=== PATIENT | female | born 1995 | race Hispanic/Latino ===

== ENCOUNTER 2018-09-25 16:08 | Emergency (ER) | payer OTHER, SELFPAY ==
--- NOTE | 2018-09-25 18:20 | RAD REPORT ---
EXAM DESCRIPTION: US - Pelvis Complete - 09/25/2018 5:33 pm CLINICAL HISTORY: discharge, R/O TOA Pelvic pain. COMPARISON: No comparisons FINDINGS: Uterus has a somewhat unusual configuration. A Mullerian anomaly of the uterus is a possib ility. Overall, assessment is limited due to the transabdominal nature of this study. Transvaginal so nography was not performed but could be useful for follow-up assessment of the uterine anatomy if cli nically indicated. The uterus measures 6.8 x 4.3 x 3.6 cm. The endometrial stripe measures 13 mm, normal. Both ovaries are normal in size, shape and echotexture. The right ovary measures 4.3 x 2.5 x 2.1 cm. The left ovary measures 4.0 x 2.9 x 1.6 cm. No ovarian or parovarian lesions. No adnexal masses. Normal Doppler blood flow was demonstrated to both ovaries. No significant pelvic ascites. IMPRESSION: No acute abnormality discerned.
[2018-09-25 19:18] LABS: Urine Blood NEGATIVE (NEG); Urine Glucose NEGATIVE (NEG); Urine Protein NEGATIVE (NEG)
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
[2018-09-25] MEDS ORDERED: AZITHROMYCIN 250 MG TAB ONE (19:24)
[2018-09-25] MEDS ORDERED: CEFTRIAXONE 250 MG/VIAL ONE (19:24)
[2018-09-25] MEDS ORDERED: metroNIDAZOLE 500 MG TABLET ONE (19:24)
[2018-09-25] MEDS ORDERED: WATER FOR INJ,STERILE 10 ML ONE (19:25)
[2018-09-28 19:34] LABS: C.trachomatis RNA,TMA Not Detected (Not Detected)
== END 2018-09-25 19:55 | disposition home or self-care (01) ==
LOC: ER 16:08
DX: N73.9 Female pelvic inflammatory disease, unspecified (principal)
CPT/HCPCS: 76856; 81003; 81025; 87210; 87490; 87590; 96372; 99284; J0696